=== PATIENT | male | born 2000 | race Caucasian/White ===

== ENCOUNTER 2024-12-26 10:44 | Emergency (ER) | payer BC, SELFPAY ==
[2024-12-26 10:44] VITALS: BMI 24.8
[2024-12-26 10:49] VITALS: BP 124/78
[2024-12-26 12:47] VITALS: BP 122/83
--- NOTE | 2024-12-26 12:47 | ED.GENMED ---
History of Present Illness
<REJI Al - Last Filed: 12/26/24 16:51>
General
Chief Complaint: Musculo-Skeletal Complaint
Source: patient
Exam Limitations: none
Time Seen by Provider: 12/26/24 12:00
Nursing documentation reviewed up to this point in time: agreed with
History of Present Illness
History of Present Illness:
Patient is a 24-year-old called male with past medical history of Sapho syndrome presents to the ER for evaluation of worsening low pain.Pt complains low back pain that started about 1 month ago which has worsened over time. He denies any exact
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
he complains of pain to the low back which radiates into his bilateral buttocks posterior thighs. Reports he is maxing out on Tylenol and ibuprofen without relief. He denies any bowel or bladder incontinence denies saddle paresthesia denies any
leg weakness. Denies any rash. Denies any recent illness fever chills. Denies any trauma. Denies any back procedures.
Review of Systems
<REJI Al - Last Filed: 12/26/24 16:51>
Review of Systems
Allergies reviewed?: Yes
All Other Systems: ROS reviewed and negative except as documented in HPI and ROS
Constitutional: Reports no symptoms; Denies fever
Respiratory: Reports no symptoms
Cardiac: Reports no symptoms
ABD/GI: Reports no symptoms
: Denies incontinence
Musculoskeletal: Reports back pain
Neurological: Denies numbness
Psychiatric: Reports no symptoms
Phy Exam
<REJI Al - Last Filed: 12/26/24 16:51>
General Physical Exam
General Presentation: no apparent distress
General age: appears stated age
General Skin: warm and dry
General Habitus: normal
General Mental: alert
General Hydration: appears well hydrated
Gastrointestinal Exam
Gastrointestinal Exam: normal bowel sounds, non tender and soft
Neurological Exam
Neurological Exam: alert, oriented x3, no motor deficits, no sensory deficits and other (Normal distal sensation normal dorsiflexion plantar; able to heel toe walk)
[place] Coma Scale
Eye Opening: Spontaneous
Verbal Response: Oriented
Motor Response: Obeys Commands
GCS Total Score: 15
Musculoskeletal Exam
Musculoskeletal Exam: other (Mildly tender to bilateral lumbar paraspinal region no redness no bony midline tenderness no CVA tenderness)
Skin Exam
Skin Exam: normal color and warm/dry
Psychiatric Exam
Psychiatric Exam: normal mood/affect
<Chris Martin MD - Last Filed: 12/26/24 19:33>
[place] Coma Scale
GCS Total Score: 15
Course
<REJI Al - Last Filed: 12/26/24 16:51>
Orders/Labs/Results
Orders:
Orders
12/26/24 12:43
Dexamethasone Sod Phosphate [Decadron] 10 mg IV NOW STA
Ketorolac [Toradol] 15 mg IV NOW STA
12/26/24 12:47
CRP [C-Reactive Protein] Urgent
Complete Blood Count/With Diff Urgent
Comprehensive Metabolic Panel Urgent
Sed Rate [Erythrocyte Sed Rate] Urgent
12/26/24 12:50
Lumbar Spine Complete, 4 View [CR Lumbar Spine Comp Min 4 Vw*] Urgent
Comment:
Reason For Exam: pain
12/26/24 13:13
Oxycodone [Roxicodone] 5 mg PO NOW STA
diazePAM [Valium Injection] 2 mg IV NOW STA
12/26/24 13:23
Urinalysis Reflex To Culture Urgent
Date Specimen was Collected: 12/26/24
Time Specimen was Collected: 13:01
Abnormal Lab Results
12/26/24
12:47
RBC 4.51 L 10^6/uL
(4.70-6.10)
MCH 31.7 H pg
(27.0-31.0)
Chloride 110 H mmol/L
(98-107)
12/26/24 12:47
12/26/24 12:47
Vital Signs
Initial and Last Documented VS:
Initial Vital Signs
Temp Pulse Resp BP Pulse Ox
97.8 F 59 18 124/78 100
12/26/24 10:49 12/26/24 10:49 12/26/24 10:49 12/26/24 10:49 12/26/24 10:49
Last Documented Vital Signs
Temp Pulse Resp BP Pulse Ox
97.8 F 56 14 132/84 96
12/26/24 10:49 12/26/24 16:30 12/26/24 16:30 12/26/24 16:00 12/26/24 16:30
Supervisor Garage consulted with Physician
Supervisor Garage consulted with physician?: Yes
Name of Physician Consulted: ana maria Martin
<Chris Martin MD - Last Filed: 12/26/24 19:33>
Orders/Labs/Results
Orders:
Orders
12/26/24 12:43
Dexamethasone Sod Phosphate [Decadron] 10 mg IV NOW STA
Ketorolac [Toradol] 15 mg IV NOW STA
12/26/24 12:47
CRP [C-Reactive Protein] Urgent
Complete Blood Count/With Diff Urgent
Comprehensive Metabolic Panel Urgent
Sed Rate [Erythrocyte Sed Rate] Urgent
12/26/24 12:50
Lumbar Spine Complete, 4 View [CR Lumbar Spine Comp Min 4 Vw*] Urgent
Comment:
Reason For Exam: pain
12/26/24 13:13
Oxycodone [Roxicodone] 5 mg PO NOW STA
diazePAM [Valium Injection] 2 mg IV NOW STA
12/26/24 13:23
Urinalysis Reflex To Culture Urgent
Date Specimen was Collected: 12/26/24
Time Specimen was Collected: 13:01
Abnormal Lab Results
12/26/24
12:47
RBC 4.51 L 10^6/uL
(4.70-6.10)
MCH 31.7 H pg
(27.0-31.0)
Chloride 110 H mmol/L
(98-107)
12/26/24 12:47
12/26/24 12:47
Vital Signs
Initial and Last Documented VS:
Initial Vital Signs
Temp Pulse Resp BP Pulse Ox
97.8 F 59 18 124/78 100
12/26/24 10:49 12/26/24 10:49 12/26/24 10:49 12/26/24 10:49 12/26/24 10:49
Last Documented Vital Signs
Temp Pulse Resp BP Pulse Ox
97.8 F 56 14 132/84 96
12/26/24 10:49 12/26/24 16:30 12/26/24 16:30 12/26/24 16:00 12/26/24 16:30
<REJI Al - Last Filed: 12/26/24 16:51>
MDM/Problems Addressed
MDM/Problems Addressed:
24-year-old male presents with worsening low back pain that started 1 month ago with not associate with injury. He denies any associated fevers. No concerning red flags. He denies any saddle paresthesia denies any weakness to his legs denies any
bowel bladder incontinence. He is ambulatory able to heel toe walk his labs unremarkable including normal sed rate and CRP. He does have an autoimmune issue as documented however that was diagnosed years ago and he has had no issues since.
Patient was medicated with muscle laxer/steroid. He does not have a family doctor in the area. Patient was evaluated by ED physician. We did review with patient that patient will need MRI we we considered the possibility of potentially trying to
get this ordered here in the ER however he would like to wait on follow-up as an outpatient. I will give him family practice clinic as well as orthopedics
Will DC with lidocaine patch steroids and a muscle laxer.
I had a lengthy discussion with patient to return if any concerning symptoms.
<REJI Al - Last Filed: 12/26/24 16:51>
*Critical Care Note
Total Time (30-74mins, 75-104mins- exclusive of procedures): Not Applicable
ED Attending Note
<REJI Al - Last Filed: 12/26/24 16:51>
-
Portions of this chart may have been created with voice recognition software.� Occasional wrong word or��sound alike� substitutions may have occurred due to the inherent limitations of voice recognition software.
<Chris Martin MD - Last Filed: 12/26/24 19:33>
ED Attending Note
Patient seen and examined by attending physician: Yes
ED Attending Note:
Patient presents to ED secondary to 1 month history of lower back pain, worsening over the past 48 hours. Denies fever or chills. Denies loss of sensation or weakness. Denies urinary or bowel incontinence. Denies direct trauma. Patient works as
a nurse. Denies recent change in activities, or the patient does have 8-month-old child at home with whom he plays with often. Denies previous history of back injury or pain.
Physical Exam
General: mild painful distress, not acutely ill. afebrile
Head: nc/at. eomi
Neck: supple. no meningeal signs.
Abdomen: normal bowel sounds. not tender.
Back: no midline tenderness. b/l upper buttock tenderness to palpation with positive b/l straight leg raise
Neuro: alert and oriented x 3. no focal neurological deficits. antalgic gait noted
Skin: no rash
Psychiatric: well kept. interactive and cooperative
Extremities: no edema. no calf tenderness.
X-ray report reviewed and discussed with patient. History and exam consistent with likely nonspecific lower back pain versus sciatica. Patient does not have any physical exam findings concerning for cauda equina syndrome. Discussed treatment
options with the patient, including further evaluation, i.e. MRI spine. However, at this time, patient feels comfortable going home short course of pain medication. Patient will be encouraged to follow-up with PCP for reevaluation, including
potentially obtaining MRI lumbar spine as an outpatient.
Discharge Plan
Departure
Patient Disposition: Home (Routine Discharge)
Date of Disposition: 12/26/24
Time of Disposition: 16:45
Patient with high blood pressure during this ER visit?: Yes
Condition: Fair
Covid-19: Not Applicable
Discharge Problem:
Low back pain
Instructions: Low back pain - ED discharge instructions
Prescriptions:
New
prednisone 20 mg tablet
40 mg PO DAILY Qty: 10 0RF
cyclobenzaprine 10 mg tablet
10 mg PO TID PRN (Reason: muscle spasm) Qty: 10 0RF
lidocaine 5 % adhesive patch,medicated
1 patch topical DAILY Qty: 15 0RF
Referrals:
[facility] [Outside]
Deep Hopkins MD [Active, Orthopedics]
NONE,* [Family Provider, Internal Medicine]
Activity Restrictions/Additional Instructions:
As discussed prescriptions were sent to your pharmacy including a muscle laxer, prednisone and a lidocaine patch. He may also alternate with Tylenol. Please call the family practice residency clinic tomorrow to get an appointment as soon as
possible along with orthopedics. This likely will need additional evaluation imaging including MRI of your low back
Return however if any worsening of symptoms including increased pain fever chills numbness tingling weakness in extremities or any further concerns
Interventions
Interventions:
*Risk Screen - Suicide Last Done: 12/26/24 10:49
*General Assessment Last Done: 12/26/24 10:49
*Neglect/Abuse Screening Last Done: 12/26/24 10:49
*ED- Fall Risk Assessment Last Done: 12/26/24 11:42
*ED COVID-19 Vaccine History Last Done: 12/26/24 10:49
*Nursing Disposition Last Done: 12/26/24 16:43
ED-Musculoskeletal Assessment Last Done: 12/26/24 11:42
Discharge Date and Time
Discharge Date/Time: 12/26/24 16:50
Print Language: NEPALI
[2024-12-26] MEDS: DECADRON 10 MG IV (12:54)
[2024-12-26] MEDS: TORADOL 15 MG IV (12:55)
[2024-12-26 13:01] LABS: % Basophils 0.3 % (0-2); % Eosinophils 0.5 % (0-6); % Immature Granulocytes 0.1 % (0-0.5); % Lymphocytes 34.2 % (20.5-51.1); % Monocytes 7.2 % (1.7-9.3); % Neutrophils 57.7 % (42.2-75.2); Absolute Lymphocytes 2.5 10^3/uL (1.2-3.4); Absolute Monocytes 0.5 10^3/uL (0.1-0.6); Absolute Neutrophils 4.3 10^3/uL (1.4-6.5); Hematocrit 40.5 % (39.0-52.0); Hemoglobin 14.3 g/dL (13.0-18.0); Mean Corp Hgb Conc. 35.3 g/dL (33.0-37.0); Mean Corpuscular Hgb 31.7 pg (27.0-31.0); Mean Corpuscular Volume 89.8 fL (80.0-94.0); Mean Platelet Volume 10.2 fL (7.4-10.4); Nucleated Red Blood Cells % 0 % (-); Platelet Count 271 10^3/uL (130-400); Red Blood Cell Count 4.51 10^6/uL (4.70-6.10); Red Cell Dist. Width 12.4 % (11.5-14.5); White Blood Cell Count 7.4 10^3/uL (4.8-10.8)
[2024-12-26 13:08] LABS: Erythrocyte Sed Rate 3 mm/hour (0-20)
[2024-12-26 13:32] LABS: C-Reactive Protein < 5.00 mg/L (0.0-10.00)
[2024-12-26] MEDS: ROXICODONE 5 MG PO (13:36)
[2024-12-26] MEDS: VALIUM INJECTION 2 MG IV (13:37)
[2024-12-26 13:40] VITALS: BP 114/70
[2024-12-26 13:48] LABS: ALT (SGPT) 26 U/L (0-50); AST (SGOT) 26 U/L (17-59); Albumin 4.9 g/dl (3.5-5.0); Alkaline Phosphatase 71 U/L (38-126); Blood Urea Nitrogen 17 mg/dl (9-20); Calcium 9.3 mg/dl (8.4-10.2); Carbon Dioxide 24 mmol/L (22-30); Chloride 110 mmol/L (98-107); Estimated Creatinine Clearance > 125 ml/min; Glucose 93 mg/dl (70-99); Potassium 4.4 mmol/L (3.5-5.1); Sodium 142 mmol/L (135-145); Total Bilirubin 0.7 mg/dl (0.2-1.3); Total Protein 8.1 g/dl (6.3-8.2); eGFR > 60.00
[2024-12-26 14:00] VITALS: BP 108/70
[2024-12-26 14:00] LABS: Urine Albumin Negative (Neg - Trace); Urine Bilirubin Negative (Negative); Urine Character Clear (Clear); Urine Color Yellow; Urine Glucose Negative (Negative); Urine Ketone Negative (Negative); Urine Leukocyte Negative (Negative); Urine Nitrite Negative (Negative); Urine Occult Blood Negative (Negative); Urine Specific Gravity 1.015 (<1.030); Urine Urobilinogen Negative (Neg - 1+)
[2024-12-26 15:00] VITALS: BP 114/71
[2024-12-26 16:00] VITALS: BP 132/84
== END 2024-12-26 16:50 | disposition home or self-care (01) ==
LOC: EMR 10:44
PROVIDERS: Nurse Practitioner; EMERGENCY PHYSICIAN Emergency Medicine
DX: M54.50 Low back pain, unspecified (principal)
CPT/HCPCS: 96374; 96375; 99284; 72110; 80053; 81003; 85025; 85652; 86140